=== PATIENT | male | born 1965 | race Caucasian/White ===

== ENCOUNTER → 2020-07-17 | Outpatient (CLI) | payer SELFPAY | LOC: M LABSMTC 13:03 | PROVIDERS: ATTEND Pediatrics | DX: Z11.59 Encounter for screening for other viral diseases (principal) ==

== ENCOUNTER → 2022-10-23 | Outpatient (CLI) | payer OTHER | LOC: M RAD 08:17 | PROVIDERS: ATTEND Urology | DX: N40.1 Benign prostatic hyperplasia with lower urinary tract symptoms (principal); R39.198 Other difficulties with micturition ==